=== PATIENT | female | born 1955 | race Caucasian/White ===

== ENCOUNTER 2017-03-13 05:47 | Day surgery (SDC) | payer OTHER ==
[~2017-03-13] VITALS: Ht 152.4 cm; Wt 76.4 kg
[~2017-03-13 05:47] MED LIST: ALBU8.5H IH; AMLO-511 PO; ASPI-1093 PO; FERS325 PO; IPRA4AER IH; METF500T4 PO; MOME13HF IH; MONT10TA21 PO
[2017-03-13] MEDS ORDERED: SODIUM CHLORIDE 0.9% 1,000 ML IV ONE ×2 (06:00→06:06)
[2017-03-13] MEDS ORDERED: MIDAZOLAM HCL 2 MG/2 ML VIAL ONE (07:25)
[2017-03-13] MEDS ORDERED: FentaNYL CITRATE-PF 100 MCG/2 ML VIAL ONE (07:26)
[2017-03-13] MEDS ORDERED: MethylPREDNISolone SOD SUCC 125 MG/2 ML VIAL IVP ONE (08:30)
[2017-03-13] MEDS ORDERED: PROMETHAZINE HCL/CODEINE 6.25-10MG/5ML SYRUP UDCUP PO STA (08:37)
[2017-03-13] MEDS ORDERED: MethylPREDNISolone SOD SUCC 125 MG/2 ML VIAL ONE (08:53)
[2017-03-13] MEDS ORDERED: LIDOCAINE HCL 2% 30 ML JELLY TP ONE (10:00)
[2017-03-13] MEDS ORDERED: BENZOCAINE 20% 50 MCG/SPRAY 57 GM TP ONE (10:00)
[2017-03-13] MEDS ORDERED: LIDOCAINE HCL 4% 50 ML SOLUTION TP ONE (10:00)
[2017-03-13 11:04] LABS: GLUCOSE,POINT OF CARE 107 MG/DL (70-110)
[2017-03-13] MEDS ORDERED: OXYGEN THERAPY IH SCH (20:00)
== END 2017-03-13 09:40 | disposition home or self-care (01) ==
LOC: SURGERY 05:47
PROVIDERS: ATTEND Internal Medicine Critical Care Medicine
DX: J38.4 Edema of larynx (principal); B37.0 Candidal stomatitis; F17.200 Nicotine dependence, unspecified, uncomplicated; Z72.89 Other problems related to lifestyle; Z98.890 Other specified postprocedural states; Z79.899 Other long term (current) drug therapy
CPT/HCPCS: 31623; 31624; 71010; 82962; 87015 ×2; 87070; 87077; 87101; 87186; 87205; 87220; 88184; 88185; 94640; J2250; J2930; J3010; J7030; 88108; 88312

== ENCOUNTER 2018-10-06 06:33 | Day surgery (SDC) | payer OTHER ==
[~2018-10-06] VITALS: Ht 147.3 cm; Wt 72.7 kg
[~2018-10-06 06:33] MED LIST changes: -ALBU8.5H IH; +ALBU8.5H8 IH; -ASPI-1093 PO; +ASPI-1182 PO; +FERR-89 PO; -FERS325 PO; +METF-960 PO; -METF500T4 PO
[2018-10-06] MEDS ORDERED: LIDOCAINE 4% 50 ML SOLUTION TP ONE (06:34)
[2018-10-06] MEDS ORDERED: LIDOCAINE 2% 30 ML JELLY TP ONE (06:34)
[2018-10-06] MEDS ORDERED: BENZOCAINE 20% 50 MCG/SPRAY 57 GM TP ONE (06:34)
[2018-10-06] MEDS ORDERED: SODIUM CHLORIDE 0.9% 1,000 ML IV ONE ×2 (06:58→07:00)
[2018-10-06] MEDS ORDERED: BACL10TA PO (07:10)
[2018-10-06] MEDS ORDERED: MONT10TA21 PO (07:10)
[2018-10-06] MEDS ORDERED: ATOR20TA86 PO (07:10)
[2018-10-06] MEDS ORDERED: VITAD1000 PO (07:10)
[2018-10-06] MEDS ORDERED: BENZ-51 PO (07:10)
[2018-10-06] MEDS ORDERED: CALC-1009 PO (07:10)
[2018-10-06] MEDS ORDERED: PRED10 PO (07:11)
[2018-10-06 07:33] LABS: GLUCOMETER DEV NAME(LOC) SDS 5; GLUCOSE,POINT OF CARE 95 MG/DL (70-110)
[2018-10-06] MEDS ORDERED: MIDAZOLAM HCL 2 MG/2 ML VIAL ONE (07:48)
[2018-10-06] MEDS ORDERED: FentaNYL CITRATE-PF 100 MCG/2 ML VIAL ONE (07:49)
[2018-10-06] MEDS ORDERED: MethylPREDNISolone SOD SUCC 125 MG/2 ML VIAL IVP ONE (08:45)
[2018-10-06] MEDS ORDERED: OXYGEN THERAPY IH SCH (20:00)
== END 2018-10-06 10:10 | disposition home or self-care (01) ==
LOC: SURGERY 06:33
PROVIDERS: ATTEND Internal Medicine Critical Care Medicine
DX: J38.4 Edema of larynx (principal); B37.0 Candidal stomatitis; J84.111 Idiopathic interstitial pneumonia, not otherwise specified; J98.09 Other diseases of bronchus, not elsewhere classified; J98.8 Other specified respiratory disorders; R73.03 Prediabetes; F17.210 Nicotine dependence, cigarettes, uncomplicated; J43.9 Emphysema, unspecified; I10 Essential (primary) hypertension; K21.9 Gastro-esophageal reflux disease without esophagitis; Z79.82 Long term (current) use of aspirin; Z79.84 Long term (current) use of oral hypoglycemic drugs; Z72.89 Other problems related to lifestyle; Z90.49 Acquired absence of other specified parts of digestive tract; Z98.890 Other specified postprocedural states; Z79.899 Other long term (current) drug therapy
CPT/HCPCS: 31623; 31624; 71045; 82962; 87015; 87070; 87205; 87206; 87220; 88108; 88312; J2250; J2930; J3010; J7030